=== PATIENT | male | born 1970 | race Caucasian/White ===

== ENCOUNTER 2022-12-13 16:04 | Emergency (ER) | payer MEDICARE ==
[~2022-12-13] VITALS: Ht 172.7 cm; Wt 82.0 kg
[2022-12-13 16:09] VITALS: BP 106/64
[2022-12-13] MEDS ORDERED: ACETAMINOPHEN 325MG TABLET PO ONE (16:15)
== END 2022-12-13 17:36 | disposition home or self-care (01) ==
LOC: ER 16:04
DX: T82.848A Pain due to vascular prosthetic devices, implants and grafts, initial encounter (principal); M79.602 Pain in left arm; Y92.89 Other specified places as the place of occurrence of the external cause
CPT/HCPCS: 99283

== ENCOUNTER 2022-12-13 19:07 | Emergency (ER) | payer MEDICARE ==
[~2022-12-13] VITALS: Ht 177.8 cm; Wt 91.0 kg
[2022-12-13] MEDS ORDERED: IBUPROFEN 200MG TABLET PO ONE (19:30)
[2022-12-13 20:10] VITALS: BP 118/76
== END 2022-12-13 20:31 | disposition home or self-care (01) ==
LOC: ER 19:33
DX: T82.848A Pain due to vascular prosthetic devices, implants and grafts, initial encounter (principal); M19.90 Unspecified osteoarthritis, unspecified site; Z88.1 Allergy status to other antibiotic agents; Y92.89 Other specified places as the place of occurrence of the external cause
CPT/HCPCS: 99283

== ENCOUNTER 2022-12-13 21:01 | Emergency (ER) | payer MEDICARE ==
[~2022-12-13] VITALS: Ht 172.7 cm; Wt 77.0 kg
[2022-12-13 21:03] VITALS: BP 132/86
== END 2022-12-13 21:19 | disposition home or self-care (01) ==
LOC: ER 21:01
DX: T82.848A Pain due to vascular prosthetic devices, implants and grafts, initial encounter (principal); M79.602 Pain in left arm; M19.90 Unspecified osteoarthritis, unspecified site; Z88.1 Allergy status to other antibiotic agents; Y92.89 Other specified places as the place of occurrence of the external cause
CPT/HCPCS: 99283